=== PATIENT | female | born 1965 | race Caucasian/White ===

== ENCOUNTER → 2017-01-08 | Outpatient (CLI) | payer OTHER | LOC: FIMAGING 15:20 | PROVIDERS: ATTEND Internal Medicine | DX: Z12.31 Encounter for screening mammogram for malignant neoplasm of breast (principal) | CPT/HCPCS: G0202 ==

== ENCOUNTER 2017-11-11 06:11 | Observation (INO) | payer OTHER ==
[2017-11-11] MEDS ORDERED: LIDOCAINE 1% 2 ML INJ ID PRN (06:19)
[2017-11-11] MEDS ORDERED: LR 1,000 ML IV ONE (06:19)
--- NOTE | 2017-11-11 06:25 | PDGENHP ---
History and Physical History and Physical: Assessment and Plan: 1. Intramural leiomyoma of uterus Carlene has several issues going on. The most significant of which is her uterine fibroids causing heavy menses and anemia as well as mass effect. Additionally she has persistent MAGALYS-2 of the cervix. We reviewed all conservative and surgical options. At the end of our discussion she is interested in surgical intervention. I think she is an excellent candidate for minimally invasive surgery. This would be a robotic assisted total laparoscopic hysterectomy and bilateral salpingectomy.. She will she would switch to Sprintec to try to control her bleeding until surgery. 2. Menorrhagia with regular cycle 3. Dysplasia of cervix, high grade MAGALYS 2 Subjective: Patient ID: Carlene Torres is a 51 y.o. female who presents to [facility] for fibroids. COREY Concepcion is a 51-year-old para 2 woman who presents for surgical consultation. She presents with several issues. She was diagnosed with HPV 4 years ago she underwent a LEEP procedure in June 2017 for MAGALYS-2. The margins were apparently positive. She was told she could either repeat the LEEP or wait 3 months and repeat her Pap smear. Her second issue is some perimenopausal symptoms. She has been suffering from vaginal dryness, mood swings, and emotional lability. She had her estradiol and FSH drawn which were in the premenopausal range. However she was found to be anemic. She has a 10 year history of heavy menses and a known uterine fibroid. It was recommended she consider use of a low-dose control pill in a continuous fashion for her perimenopausal symptoms and menorrhagia. Unfortunately she has been having irregular bleeding on the low-dose continuous control pill. She had some heavy bleeding recently requiring her funeral service practitioner/embalmer to have her use the control pill twice a day as well as Lysteda. She underwent a pelvic ultrasound of [facility] on July 24. The uterus measured 12 x 7 x 7 cm. She had a dominant fibroid measuring 7.2 x 4.8 x 4.6 cm. Her cycles are fairly regular. She will bleed 7 days. 3 of the days are heavy when she will have to change her protection every hour and use backup protection. She often has to wake up several times per night to change her protection. She has no stress urinary incontinence. She was told she likely would require an abdominal hysterectomy given the size. PastMedicalHistory Past Medical History: Diagnosis Date Depression PastSurgicalHistory Past Surgical History: Procedure Laterality Date SECTION LEEP CURRENT MEDICATIONS: Current Outpatient Prescriptions Medication Sig buPROPion (WELLBUTRIN) 75 mg tablet escitalopram oxalate (LEXAPRO) 10 mg tablet FERROUS SULFATE (IRON PO) FE 1.5/30, 28, 1.5 mg-30 mcg (21)/75 mg (7) per tablet traZODone (DESYREL) 100 mg tablet No current facility-administered medications for this visit. ALLERGIES: Lidocaine-epinephrine I have reviewed, verified and agree with the past medical, surgical, , family, social and ROS history as documented by the RN today. Objective: Vital Signs: Visit Vitals BP 100/70 Pulse 74 Temp 36.9 C (98.5 F) (Temporal Artery) Resp 16 Ht 1.727 m (5' 8") Wt 63.2 kg (139 lb 6.4 oz) SpO2 99% BMI 21.20 kg/m Physical Exam Gen: This is an alert, well developed woman in no distress. Neuro: She moves all extremities. Psych: She is appropriate, oriented, with normal affect. Neck: No thyroid enlargement, adenopathy, or tenderness. Lungs: Clear to ascultation, no wheezes or rales. Heart: Regular rate and rhythm without obvious murmurs. Abdomen: Soft, non-tender, without guarding, rebound, or masses. She has a well -healed Pfannenstiel incision. There is no diastases recti. Extremities: No edema or cyanosis. Pelvic: Normal external genitalia. Non-gaping introitus, vagina without discharge, adequately estrogenized, no significant prolapse. Cervix without lesions or discharge. Adnexa non-tender without enlargement. The uterus is 14 week size and tender. DATA: I have reviewed the pertinent medical records. TIME/COMMUNICATION: I personally spent a total of 60 minutes. Of that 45 minutes was counseling/ coordination of patient's care. See my note above for details. Adan Diaz MD Board Certified Female Pelvic Medicine and Reconstructive Surgery Director of Minimally Invasive Gynecologic Surgery, [facility] Surgeon in Minimally Invasive Gynecologic Surgery [facility] Surgeon in Robotic Surgery
[2017-11-11] MEDS ORDERED: ACETAMINOPHEN 500 MG TAB PO ONE (07:13)
[2017-11-11] MEDS ORDERED: GABAPENTIN 400 MG CAP PO ONE (07:13)
[2017-11-11] MEDS ORDERED: PHENAZOPYRIDINE HCL 200 MG TAB PO ONE (07:13)
[2017-11-11] MEDS ORDERED: ceFAZolin 2 GM/SWFI 2 GM/20 ML SYR IVP ONE (07:13)
[2017-11-11] MEDS ORDERED: BUPIVACAINE/EPI 0.5% 30 ML SDV ONE (07:49)
[2017-11-11] MEDS ORDERED: MIDAZOLAM 2 MG/2 ML VIAL ONE (08:07)
[2017-11-11] MEDS ORDERED: fentaNYL 100 MCG/2 ML INJ ONE ×2 (08:20→10:14)
[2017-11-11] MEDS ORDERED: PROPOFOL/EMULSION 500 MG/50 ML BOTTLE IV ONE (08:21)
[2017-11-11] MEDS ORDERED: LIDOCAINE 2% 5 ML SDV ONE (08:41)
[2017-11-11] MEDS ORDERED: DEXAMETHASONE 4 MG/ML VIAL ONE (08:41)
[2017-11-11] MEDS ORDERED: SUGAMMADEX SODIUM 200 MG/2 ML VIAL IVP ONE (08:41)
[2017-11-11] MEDS ORDERED: ROCURONIUM 100 MG/10 ML VIAL ONE (08:41)
[2017-11-11] MEDS ORDERED: ONDANSETRON 4 MG/2 ML VIAL ONE (08:41)
[2017-11-11] MEDS ORDERED: KETOROLAC 30 MG/1 ML SDV ONE (08:41)
[2017-11-11] MEDS ORDERED: RANITIDINE 50 MG/2 ML VIAL ONE (08:41)
[2017-11-11] MEDS ORDERED: NALOXONE HCL 0.4 MG/ML INJ IVP PRN (08:50)
[2017-11-11] MEDS ORDERED: ONDANSETRON 4 MG/2 ML VIAL IVP PRN ×2 (08:50→10:08)
[2017-11-11] MEDS ORDERED: ALBUTEROL 3 ML DEYVIAL IH PRN (08:50)
[2017-11-11] MEDS ORDERED: DIAZEPAM 5 MG/ML 1 ML SYR IVP PRN (08:50)
[2017-11-11] MEDS ORDERED: LR 500 ML IV PRN (08:50)
[2017-11-11] MEDS ORDERED: fentaNYL 100 MCG/2 ML INJ IVP PRN (08:50)
[2017-11-11] MEDS ORDERED: DEXAMETHASONE 4 MG/ML VIAL IVP PRN (08:50)
--- NOTE | 2017-11-11 08:50 | PDANEPAE ---
ANE Past Medical History - Cardiovascular History Hx Hypertension: No Hx Arrhythmias: No Hx Chest Pain: No Hx Coronary Artery / Peripheral Vascular Disease: No Hx CHF / Valvular Disease: No Hx Palpitations: No - Pulmonary History Hx COPD: No Hx Asthma/Reactive Airway Disease: No Hx Recent Upper Respiratory Infection: No Hx Oxygen in Use at Home: No Hx Sleep Apnea: No Sleep Apnea Screening Result - Last Documented: Negative - Neurologic History Hx Cerebrovascular Accident: No Hx Seizures: No Hx Dementia: No Neurologic History Comment: prone to migraine H/A's - Endocrine History Hx Diabetes: No - Renal History Hx Renal Disorders: No - Liver History Hx Hepatic Disorders: No - Neurological & Psychiatric Hx Hx Neurological and Psychiatric Disorders: Yes Neurological / Psychiatric History Comment: depression -well managed;. occ neck pain due to stress - Cancer History Hx Cancer: No - Congenital Disorder History Hx Congenital Disorders: No - GI History Hx Gastrointestinal Disorders: No - Other Health History Other Health History: uterine fibroids - Chronic Pain History Chronic Pain: No - Surgical History Prior Surgeries: C Section 2001. wisdom teeth extraction age 22 ANE Review of Systems Review of Systems: - Exercise capacity METS (RN): 4 METS ANE Patient History - Allergies Allergies/Adverse Reactions: No Known Allergies Allergy (Verified 10/28/17 14:07) - Home Medications Home Medications: ALPRAZolam [Xanax 0.5 MG (*)] 0.5 mg PO DAILY PRN 10/21/17 [Last Taken Unknown] Albuterol [Proventil Inhaler HFA (*)] 1 - 2 puffs IH DAILY PRN 10/21/17 [Last Taken Unknown] Escitalopram Oxalate [Lexapro] 10 mg PO DAILY 10/21/17 [Last Taken Unknown] Ferrous Sulfate [Ferrous Sulf 325 MG (*)] 325 mg PO DAILY 10/21/17 [Last Taken Unknown] Fexofenadine HCl [Nila Allergy] 60 mg PO DAILY PRN 10/21/17 [Last Taken Unknown] Ibuprofen [Motrin (*)] 200 mg PO DAILY PRN 10/21/17 [Last Taken Unknown] Pseudoephedrine HCl [Sudafed] 30 mg PO DAILY PRN 10/21/17 [Last Taken Unknown] buPROPion [Wellbutrin 75mg (*)] 75 mg PO BID 10/21/17 [Last Taken Unknown] traZODone [traZODONE 100MG (*)] 100 mg PO HS 10/21/17 [Last Taken Unknown] Norgestimate-Ethinyl Estradiol [Previfem Tablet] 1 each PO DAILY 10/28/17 [Last Taken Unknown] - NPO status NPO Since - Liquids (Date): 11/11/17 NPO Since - Liquids (Time): 05:00 NPO Since - Solids (Date): 11/10/17 NPO Since - Solids (Time): 19:00 - Smoking Hx Smoking Status: Never smoked ANE Labs/Vital Signs - Vital Signs Blood Pressure: 127/60 Heart Rate: 77 Respiratory Rate: 18 O2 Sat (%): 99 Height: 172.72 cm Weight: 61.235 kg ANE Physical Exam - Airway Neck exam: FROM Mallampati Score: Class 1 Mouth exam: normal dental/mouth exam - Pulmonary Pulmonary: no respiratory distress, no rales or rhonchi - Cardiovascular Cardiovascular: regular rate and rhythym, no murmur, rub, or gallop, systolic murmur - ASA Status ASA Status: II ANE Anesthesia Plan Anesthesia Plan: general endotracheal anesthesia
[2017-11-11] MEDS ORDERED: PROPOFOL 200 MG/20 ML VIAL ONE (09:07)
[2017-11-11] MEDS ORDERED: ALBUTEROL 60 PUFFS/8 GM MDI IH PRN (10:06)
[2017-11-11] MEDS ORDERED: ALPRAZolam 0.5 MG TAB PO PRN (10:06)
--- NOTE | 2017-11-11 10:06 | POSTOPPROG ---
Post Op Note Date of Operation: 11/11/17 Surgeon: Adan Diaz Distributor Publications: Tori Lee Anesthesiologist: Eveline Anesthesia: GET(General Endotracheal) Pre-op Diagnosis: Uterine fibroid Post-op Diagnosis: Same Procedure: Robotic hyst, cysto Findings: Ureters function at end of case Inf/Abcess present in the surg proc area at time of surgery?: No EBL: Minimal Complications: None
[2017-11-11] MEDS ORDERED: HYDROmorphone HCL/NS 0.5 MG/ML SYR IVP PRN (10:08)
[2017-11-11] MEDS ORDERED: PROMETHAZINE HCL 25 MG/ML INJ IVP PRN (10:08)
[2017-11-11] MEDS ORDERED: ONDANSETRON DISINTEGRATING 4 MG TAB PO PRN (10:08)
[2017-11-11] MEDS ORDERED: HYDROCODONE/APAP 5/325 TAB PO PRN (10:08)
[2017-11-11] MEDS ORDERED: LR 1,000 ML IV SCH (10:30)
--- NOTE | 2017-11-11 11:13 | POSTANESTH ---
Post Anesthetic Evaluation Cardiovascular Status: Normal, Stable, Similar to Pre-Op Cond Respiratory Status: Normal, Stable, Similar to Pre-op Cond. Level of Consciousness/Mental Status: Can Participate in Eval Pain Control: Adequate, Prn Tx Ordered Nausea/Vomiting Control: Adequate, Prn Tx Ordered Complications Possibly Related to Anesthesia: None Noted
[2017-11-11] MEDS ORDERED: HYDROmorphONE/DILAUDID 2 MG/ML INJ IVP PRN (12:00)
--- NOTE | 2017-11-11 13:06 | GOP ---
[f rep st] OPERATIVE REPORT DATE OF OPERATION: 11/11/2017 SURGEON: Adan Diaz MD DIRECTOR OF PROGRAM MANAGEMENT: JAD Jamil ANESTHESIA: General. PREOPERATIVE DIAGNOSIS: 1. Uterine fibroid. 2. Menorrhagia. 3. Dysmenorrhea. 4. Uterine prolapse. POSTOPERATIVE DIAGNOSIS: 1. Uterine fibroid. 2. Menorrhagia. 3. Dysmenorrhea. 4. Uterine prolapse. PROCEDURE PERFORMED: 1. Robotic-assisted total laparoscopic hysterectomy, bilateral salpingectomy. 2. Bilateral uterosacral ligament colpopexy. 3. Cystoscopy. FINDINGS: SPECIMENS: Uterus, cervix, bilateral tubes. ESTIMATED BLOOD LOSS: Scant. DESCRIPTION OF PROCEDURE: The patient was taken to the operating room. She was identified. General anesthesia was administered and found be adequate. She was placed in the lithotomy position and pre pared and draped in normal sterile fashion. A [employer] uterine manipulator was placed into the endometr ial cavity and sutured to the cervix. A Mckeon catheter was then placed. A 1 cm infraumbilical incision was made with a scalpel. The Veress needle with the CO2 gas flowing w as advanced into the peritoneal cavity. The abdomen was then insufflated with carbon dioxide gas. T he 12 mm trocar, followed by the laparoscope, were then inserted. The upper abdomen was unremarkable . The patient had an enlarged fibroid uterus, but otherwise an unremarkable pelvis. Two lateral por ts were placed on the right and one on the left under direct visualization. She then was placed in T rendelenburg position and the da Randy robot docked on the left side. The instruments were then brou ght into the abdominal cavity under direct visualization. The left fallopian tube was philipp g the mesosalpinx. The utero-ovarian ligament, followed by the round ligament, were then cauterized and transected. The anterior leaf of the broad ligament was then incised over the left uterine vesse ls and across the cervix. The cervix was adherent to the lower uterine segment and cervix from her p rior sections. It was gently dissected free beyond the upper vagina. The left uterine vasc ulature was then cauterized and transected. The exact same procedure was performed on the patient's right side. A circumferential colpotomy incision was then made with the hot pancho and the specimen removed through the vagina. The vaginal cuff was then closed with a running suture of 0 V-Loc 180. A bilateral uterosacral ligament colpopexy was performed. The vagina cuff was sutured to the uterosa cral ligament near the sacrospinous ligament/coccygeus complex. The pelvis was irrigated with steril e saline and hemostasis was present. The robot was then undocked. The fascia was closed with 0 Vicr yl, skin with 4-0 Monocryl and surgical adhesive. Cystoscopy was then performed. Both ureters had vigorous jets of urine. There was no evidence of bl adder nor urethral injury seen. No sutures within the bladder. No obvious pathology was seen. Anes thesia was reversed and the patient taken to PACU awake, in stable condition. COMPLICATIONS: None. DISPOSITION: Patient stable to PACU. /[id number]/MODL
[2017-11-11] MEDS: KETOROLAC 30 MG/1 ML SDV IVP SCH ×2 (15:30→21:39)
[2017-11-11] MEDS: OXYCODONE/APAP 5/325 TAB PO PRN ×2 (18:15→19:09)
[2017-11-11] MEDS: SIMETHICONE 80 MG TAB CHEW PO SCH ×3 (18:34→22:17)
[2017-11-11] MEDS ORDERED: traZODone 100 MG TAB PO SCH (21:00)
[2017-11-11] MEDS: DOCUSATE SODIUM 100 MG CAP PO SCH (21:40)
[2017-11-11] MEDS: buPROPion 75 MG TAB PO SCH (21:40)
[2017-11-12] MEDS: KETOROLAC 30 MG/1 ML SDV IVP SCH (04:09)
[2017-11-12] MEDS: SIMETHICONE 80 MG TAB CHEW PO SCH ×3 (05:26→13:00)
[2017-11-12] MEDS: OXYCODONE/APAP 5/325 TAB PO PRN ×2 (08:38→12:59)
[2017-11-12] MEDS: DOCUSATE SODIUM 100 MG CAP PO SCH (08:40)
[2017-11-12] MEDS: buPROPion 75 MG TAB PO SCH (08:40)
[2017-11-12 08:48] VITALS: BP 116/73
[2017-11-12] MEDS ORDERED: ESCITALOPRAM OXALATE 10 MG TAB PO SCH (09:00)
--- NOTE | 2017-11-12 12:55 | GDS ---
[f rep st] DISCHARGE SUMMARY DISCHARGE DIAGNOSES: 1. Uterine fibroids. 2. Menorrhagia. PROCEDURES: 1. Robotic-assisted total laparoscopic hysterectomy and bilateral salpingectomy. 2. Uterosacral ligament colpopexy. 3. Cystoscopy. HOSPITAL COURSE: The patient is a 52-year-old female with heavy menses and a uterine fibroid. She w as taken to the operating room on 11/11/2017, where she underwent the above-mentioned procedures with out complications. Her postoperative course was uneventful. The morning after surgery, she was ambulating, voiding, and tolerating a general diet. Her vital signs were stable. Her exam was completely benign. Her hemog lobin was stable. She was discharged home on postoperative day #1 in good condition. Medications in cluded Percocet and ibuprofen for pain. She was to follow up in the office 2 weeks after discharge. Postoperative instructions and precautions were reviewed. /[id number]/MODL
== END 2017-11-12 13:45 | disposition home or self-care (01) ==
LOC: F3N 06:11 → FOB 11:24
PROVIDERS: ADMIT Obstetrics & Gynecology; ATTEND Obstetrics & Gynecology
PROC: 0UT7FZZ Resection of Bilateral Fallopian Tubes, Via Natural or Artificial Opening With Percutaneous Endoscopic Assistance (ICD-10-PCS; 2017-11-11)
PROC: 0UTC8ZZ Resection of Cervix, Via Natural or Artificial Opening Endoscopic (ICD-10-PCS; 2017-11-11)
PROC: 0UUG8JZ Supplement Vagina with Synthetic Substitute, Via Natural or Artificial Opening Endoscopic (ICD-10-PCS; 2017-11-11)
PROC: 8E0Y4CZ Robotic Assisted Procedure of Lower Extremity, Percutaneous Endoscopic Approach (ICD-10-PCS; 2017-11-11)
PROC: 0UT9FZZ Resection of Uterus, Via Natural or Artificial Opening With Percutaneous Endoscopic Assistance (ICD-10-PCS; principal; 2017-11-11 08:15)
DX: D25.9 Leiomyoma of uterus, unspecified (principal); N94.6 Dysmenorrhea, unspecified; N92.0 Excessive and frequent menstruation with regular cycle; N81.4 Uterovaginal prolapse, unspecified; N87.1 Moderate cervical dysplasia
CPT/HCPCS: 57425; 58571; G0378; J0690; J1100; J1170; J1885; J2250; J2270; J2405; J2704; J2780; J3010